=== PATIENT | female | born 1945 | race Caucasian/White ===

== ENCOUNTER 2017-11-10 09:32 | Emergency (ER) | payer MEDICARE, MEDICAID ==
[~2017-11-10] VITALS: Ht 160 cm; Wt 58.0 kg
[2017-11-10 10:32] LABS: BASOPHILS # (AUTO) 0.1 X10'3 (0-0.2); BASOPHILS % (AUTO) 0.7 % (0-1); EOSINOPHILS # (AUTO) 0.1 X10'3 (0-0.9); EOSINOPHILS % (AUTO) 1.4 % (0-6); HEMATOCRIT 45.5 % (35.0-45.0); HEMOGLOBIN 15.3 g/dl (12.0-16.0); LYMPHOCYTES # (AUTO) 0.9 X10'3 (1.1-4.8); LYMPHOCYTES % (AUTO) 10.9 % (21-51); MEAN CORPUSCULAR HEMOGLOBIN 29.4 PG (27.0-31.0); MEAN CORPUSCULAR HGB CONC 33.6 % (33.0-36.5); MEAN CORPUSCULAR VOLUME 87.4 FL (78-98); MEAN PLATELET VOLUME 8.5 FL (7.4-10.4); MONOCYTES # (AUTO) 0.6 X10'3 (0-0.9); MONOCYTES % (AUTO) 6.6 % (2-12); NEUTROPHILS # (AUTO) 6.9 X10'3 (1.8-7.7); NEUTROPHILS % (AUTO) 80.4 % (42-75); PLATELET COUNT 206 X10'3 (140-440); WHITE BLOOD COUNT 8.6 X10'3 (4.5-11.0)
[2017-11-10] MEDS ORDERED: methylPREDNISolone sod succ 125mg/2ml vial IM ONE (10:40)
[2017-11-10 10:53] LABS: ALANINE AMINOTRANSFERASE 23 U/L (12-78); ALBUMIN 3.2 G/DL (3.4-5.0); ALBUMIN/GLOBULIN RATIO 0.8 (1.1-1.5); ALKALINE PHOSPHATASE 124 IU/L (46-116); ANION GAP 10 (8-16); ASPARTATE AMINO TRANSFERASE 19 U/L (10-37); BILIRUBIN,TOTAL 0.5 MG/DL (0.1-1.0); BLOOD UREA NITROGEN 18 MG/DL (7-18); C-REACTIVE PROTEIN 2.43 MG/DL (0.0-0.5); CALCIUM 9.9 MG/DL (8.5-10.1); CHLORIDE 105 MMOL/L (99-107); GLUCOSE 99 MG/DL (70-104); POTASSIUM 3.7 MMOL/L (3.5-5.1); SODIUM 143 MMOL/L (135-145); TOTAL PROTEIN 7.3 G/DL (6.4-8.2); eGFR 54 ML/MIN
[2017-11-10] MEDS ORDERED: mag hydrox/Alum hydrox/simeth 30ml oral suspension PO ONE (10:55)
[2017-11-10 13:01] VITALS: BP 118/68
== END 2017-11-10 13:02 | disposition home or self-care (01) ==
LOC: ER 09:33
DX: M25.511 Pain in right shoulder (principal); R70.0 Elevated erythrocyte sedimentation rate; R79.82 Elevated C-reactive protein (CRP); M19.90 Unspecified osteoarthritis, unspecified site
CPT/HCPCS: 36415; 73030; 73060; 80053; 85025; 85651; 86140; 96372; 99285; J2930

== ENCOUNTER 2018-10-07 00:25 | Emergency (ER) | payer MEDICARE, MEDICAID ==
[~2018-10-07] VITALS: Ht 160 cm; Wt 58.6 kg
[2018-10-07 01:12] LABS: ALANINE AMINOTRANSFERASE 10 U/L (12-78); ALBUMIN 2.8 G/DL (3.4-5.0); ALBUMIN/GLOBULIN RATIO 0.9 (1.1-1.5); ALKALINE PHOSPHATASE 94 IU/L (46-116); ANION GAP 9 (8-16); ASPARTATE AMINO TRANSFERASE 0 U/L (10-37); BILIRUBIN,TOTAL 0.2 MG/DL (0.1-1.0); BLOOD UREA NITROGEN 29 MG/DL (7-18); BUN/CREATININE RATIO 18.5 (6.6-38.0); CALCIUM 8.6 MG/DL (8.5-10.1); CHLORIDE 104 MMOL/L (99-107); CREATININE 1.57 MG/DL (0.40-0.90); GLUCOSE 127 MG/DL (70-104); SODIUM 139 MMOL/L (135-145); TOTAL CARBON DIOXIDE 25.8 MMOL/L (24-32); eGFR 32 ML/MIN
[2018-10-07 01:14] LABS: INR 0.9 INR; PARTIAL THROMBOPLASTIN TIME 24 SECONDS (22-32); PROTHROMBIN TIME 9.6 SECONDS (9.0-12.0)
[2018-10-07 01:17] LABS: AMYLASE 87 U/L (25-115); LIPASE 306 U/L (73-393); MAGNESIUM 1.9 MG/DL (1.5-2.4)
[2018-10-07 01:25] LABS: BASOPHILS # (AUTO) 0.1 X10'3 (0-0.2); BASOPHILS % (AUTO) 0.5 % (0-1); EOSINOPHILS # (AUTO) 0.1 X10'3 (0-0.9); EOSINOPHILS % (AUTO) 0.7 % (0-6); HEMATOCRIT 47.1 % (35.0-45.0); HEMOGLOBIN 15.1 g/dl (12.0-16.0); LYMPHOCYTES # (AUTO) 1.7 X10'3 (1.1-4.8); LYMPHOCYTES % (AUTO) 16.1 % (21-51); MEAN CORPUSCULAR HEMOGLOBIN 28.1 PG (27.0-31.0); MEAN CORPUSCULAR HGB CONC 32.2 % (33.0-36.5); MEAN CORPUSCULAR VOLUME 87.4 FL (78-98); MONOCYTES # (AUTO) 0.6 X10'3 (0-0.9); MONOCYTES % (AUTO) 5.1 % (2-12); NEUTROPHILS # (AUTO) 8.3 X10'3 (1.8-7.7); NEUTROPHILS % (AUTO) 77.6 % (42-75); PLATELET COUNT 162 X10'3 (140-440); RED BLOOD COUNT 5.39 X10'6 (4.20-5.60); RED CELL DISTRIBUTION WIDTH 16.4 % (11.5-14.5); WHITE BLOOD COUNT 10.8 X10'3 (4.5-11.0)
[2018-10-07 02:32] VITALS: BP 132/75
== END 2018-10-07 02:35 | disposition home or self-care (01) ==
LOC: ER 00:25
DX: R00.2 Palpitations (principal); E86.0 Dehydration; Z95.0 Presence of cardiac pacemaker
CPT/HCPCS: 36415; 71045; 80053; 82150; 83690; 83735; 84484; 85025; 85610; 85730; 93005; 99284

== ENCOUNTER 2018-10-12 19:34 | Emergency (ER) | payer MEDICARE, MEDICAID ==
[~2018-10-12] VITALS: Ht 160 cm; Wt 57.2 kg
--- NOTE | 2018-10-12 20:10 | NUR ---
Patient is A&O x3, WORTHY and is appropriate. She was brought in by EMS with complaints of HTN, her BP is WNL now. I will continue to monitor.
--- NOTE | 2018-10-12 20:25 | NUR ---
Patient resting comfortably on gurney, no complaints.
[2018-10-12 20:49] LABS: BASOPHILS # (AUTO) 0.1 X10'3 (0-0.2); BASOPHILS % (AUTO) 0.6 % (0-1); EOSINOPHILS % (AUTO) 0.1 % (0-6); HEMATOCRIT 47.5 % (35.0-45.0); HEMOGLOBIN 15.4 g/dl (12.0-16.0); LYMPHOCYTES # (AUTO) 0.7 X10'3 (1.1-4.8); LYMPHOCYTES % (AUTO) 6.9 % (21-51); MEAN CORPUSCULAR HGB CONC 32.3 % (33.0-36.5); MEAN CORPUSCULAR VOLUME 86.6 FL (78-98); MEAN PLATELET VOLUME 8.5 FL (7.4-10.4); MONOCYTES # (AUTO) 0.1 X10'3 (0-0.9); MONOCYTES % (AUTO) 1.4 % (2-12); NEUTROPHILS # (AUTO) 9.4 X10'3 (1.8-7.7); PLATELET COUNT 188 X10'3 (140-440); RED BLOOD COUNT 5.48 X10'6 (4.20-5.60); WHITE BLOOD COUNT 10.3 X10'3 (4.5-11.0)
[2018-10-12 20:56] LABS: ALANINE AMINOTRANSFERASE 26 U/L (12-78); ALBUMIN/GLOBULIN RATIO 0.9 (1.1-1.5); ALKALINE PHOSPHATASE 87 IU/L (46-116); ANION GAP 11 (8-16); ASPARTATE AMINO TRANSFERASE 12 U/L (10-37); BILIRUBIN,TOTAL 0.2 MG/DL (0.1-1.0); BLOOD UREA NITROGEN 25 MG/DL (7-18); CALCIUM 8.5 MG/DL (8.5-10.1); CHLORIDE 102 MMOL/L (99-107); GLUCOSE 155 MG/DL (70-104); POTASSIUM 4.2 MMOL/L (3.5-5.1); SODIUM 138 MMOL/L (135-145); TOTAL CARBON DIOXIDE 25.3 MMOL/L (24-32); TOTAL PROTEIN 6.2 G/DL (6.4-8.2); eGFR 54 ML/MIN
[2018-10-12] MEDS ORDERED: LORazepam 1 MG tablet PO ONE (21:10)
[2018-10-12 21:24] VITALS: BP 114/76
== END 2018-10-12 21:27 | disposition home or self-care (01) ==
LOC: ER 19:34
DX: I10 Essential (primary) hypertension (principal); F41.9 Anxiety disorder, unspecified; M19.90 Unspecified osteoarthritis, unspecified site; Z95.0 Presence of cardiac pacemaker; Z91.041 Radiographic dye allergy status
CPT/HCPCS: 36415; 71045; 80053; 84484; 85025; 93005; 99284

== ENCOUNTER 2018-11-01 09:15 | Inpatient (IN) | payer MEDICARE, MEDICAID | END 2018-11-02 13:20 | disposition home or self-care (01) | LOC: ER 09:15 → PCU 3S 12:00 → MED 3N 19:05 ==

== ENCOUNTER 2019-06-11 14:44 | Emergency (ER) | payer MEDICARE, MEDICAID ==
[~2019-06-11] VITALS: Ht 160 cm; Wt 65.9 kg
[~2019-06-11 14:44] MED LIST: OMEP20CA11 PO; PRED10TA23 PO
[2019-06-11 14:50] VITALS: BP 131/76
[2019-06-11] MEDS ORDERED: AZIT250T PO (15:28)
== END 2019-06-11 15:43 | disposition home or self-care (01) ==
LOC: ER 14:45
DX: J06.9 Acute upper respiratory infection, unspecified (principal); L53.9 Erythematous condition, unspecified; J44.9 Chronic obstructive pulmonary disease, unspecified; M19.90 Unspecified osteoarthritis, unspecified site; Z95.0 Presence of cardiac pacemaker; Z79.899 Other long term (current) drug therapy; Z91.041 Radiographic dye allergy status
CPT/HCPCS: 99283

== ENCOUNTER 2019-08-27 11:46 | Emergency (ER) | payer MEDICARE, MEDICAID ==
[~2019-08-27] VITALS: Ht 160 cm; Wt 66.5 kg
[~2019-08-27 11:46] MED LIST changes: +AZIT250T PO
[2019-08-27 13:11] LABS: BASOPHILS % (AUTO) 0.7 % (0-1); EOSINOPHILS % (AUTO) 0.5 % (0-6); HEMOGLOBIN 15.6 g/dl (12.0-16.0); LYMPHOCYTES # (AUTO) 1.2 X10'3 (1.1-4.8); LYMPHOCYTES % (AUTO) 18.8 % (21-51); MEAN CORPUSCULAR HEMOGLOBIN 29.9 PG (27.0-31.0); MEAN CORPUSCULAR HGB CONC 33.3 g/dL (33.0-36.5); MEAN CORPUSCULAR VOLUME 89.7 FL (78-98); MEAN PLATELET VOLUME 8.8 FL (7.4-10.4); MONOCYTES # (AUTO) 0.6 X10'3 (0-0.9); MONOCYTES % (AUTO) 8.5 % (2-12); NEUTROPHILS # (AUTO) 4.7 X10'3 (1.8-7.7); NEUTROPHILS % (AUTO) 71.5 % (42-75); PLATELET COUNT 191 X10'3 (140-440); RED BLOOD COUNT 5.24 X10'6 (4.20-5.60); RED CELL DISTRIBUTION WIDTH 14.1 % (11.5-14.5); WHITE BLOOD COUNT 6.6 X10'3 (4.5-11.0)
[2019-08-27 13:34] LABS: ALANINE AMINOTRANSFERASE 10 U/L (12-78); ALBUMIN 3.2 G/DL (3.4-5.0); ALBUMIN/GLOBULIN RATIO 0.8 (1.1-1.5); ALKALINE PHOSPHATASE 92 IU/L (46-116); ANION GAP 6 (8-16); ASPARTATE AMINO TRANSFERASE 14 U/L (10-37); BILIRUBIN,TOTAL 0.3 MG/DL (0.1-1.0); BLOOD UREA NITROGEN 20 MG/DL (7-18); BUN/CREATININE RATIO 17.2 (6.6-38.0); C-REACTIVE PROTEIN 1.84 MG/DL (0.0-0.5); CALCIUM 9.1 MG/DL (8.5-10.1); CHLORIDE 104 MMOL/L (99-107); CREATININE 1.16 MG/DL (0.40-0.90); GLUCOSE 96 MG/DL (70-104); POTASSIUM 3.8 MMOL/L (3.5-5.1); SODIUM 139 MMOL/L (135-145); TOTAL PROTEIN 7.2 G/DL (6.4-8.2); eGFR 46 ML/MIN
[2019-08-27] MEDS ORDERED: ORPH100T2 PO (15:34)
[2019-08-27 15:38] VITALS: BP 140/74
== END 2019-08-27 15:39 | disposition home or self-care (01) ==
LOC: ER 11:47
DX: R51 Headache (principal); J44.9 Chronic obstructive pulmonary disease, unspecified; M19.90 Unspecified osteoarthritis, unspecified site; M81.0 Age-related osteoporosis without current pathological fracture; F17.200 Nicotine dependence, unspecified, uncomplicated; Z95.0 Presence of cardiac pacemaker; Z91.041 Radiographic dye allergy status; Z79.899 Other long term (current) drug therapy
CPT/HCPCS: 36415; 70486; 80053; 85025; 85651; 86140; 99284

== ENCOUNTER 2020-03-14 11:26 | Emergency (ER) | payer MEDICARE, MEDICAID ==
[~2020-03-14] VITALS: Ht 160 cm; Wt 60.9 kg
[~2020-03-14 11:26] MED LIST changes: -OMEP20CA11 PO; +OMEP20CA15 PO; +ORPH100T2 PO
[2020-03-14] MEDS ORDERED: aspirin 81mg tab.chew PO ONE (12:05)
[2020-03-14] MEDS ORDERED: atenolol 50mg tablet PO ONE (12:05)
[2020-03-14] MEDS ORDERED: ondansetron 4mg rapidly disintigrating tab PO ONE (12:05)
[2020-03-14] MEDS ORDERED: nitroGLYCERIN 0.4mg SUBLingual tab SL PRN (12:05)
[2020-03-14 12:09] LABS: BASOPHILS # (AUTO) 0.1 X10'3 (0-0.2); BASOPHILS % (AUTO) 0.9 % (0-1); EOSINOPHILS % (AUTO) 0.6 % (0-6); HEMATOCRIT 45.2 % (35.0-45.0); HEMOGLOBIN 14.8 g/dl (12.0-16.0); LYMPHOCYTES % (AUTO) 17.7 % (21-51); MEAN CORPUSCULAR HEMOGLOBIN 28.7 PG (27.0-31.0); MEAN CORPUSCULAR HGB CONC 32.7 g/dL (33.0-36.5); MEAN CORPUSCULAR VOLUME 87.8 FL (78-98); MEAN PLATELET VOLUME 9.2 FL (7.4-10.4); MONOCYTES # (AUTO) 0.4 X10'3 (0-0.9); MONOCYTES % (AUTO) 6.9 % (2-12); NEUTROPHILS # (AUTO) 4.1 X10'3 (1.8-7.7); NEUTROPHILS % (AUTO) 73.9 % (42-75); PLATELET COUNT 157 X10'3 (140-440); RED BLOOD COUNT 5.15 X10'6 (4.20-5.60); RED CELL DISTRIBUTION WIDTH 14.4 % (11.5-14.5); WHITE BLOOD COUNT 5.6 X10'3 (4.5-11.0)
[2020-03-14 12:23] LABS: ALANINE AMINOTRANSFERASE 12 U/L (12-78); ALBUMIN 3.4 G/DL (3.4-5.0); ALKALINE PHOSPHATASE 136 IU/L (46-116); ANION GAP 6 (8-16); ASPARTATE AMINO TRANSFERASE 17 U/L (10-37); BILIRUBIN,TOTAL 0.3 MG/DL (0.1-1.0); BLOOD UREA NITROGEN 15 MG/DL (7-18); BUN/CREATININE RATIO 11.8 (6.6-38.0); CALCIUM 9.5 MG/DL (8.5-10.1); CHLORIDE 108 MMOL/L (99-107); CREATININE 1.27 MG/DL (0.40-0.90); GLUCOSE 109 MG/DL (70-104); POTASSIUM 4.2 MMOL/L (3.5-5.1); SODIUM 143 MMOL/L (135-145); TOTAL CARBON DIOXIDE 28.8 MMOL/L (24-32); TOTAL PROTEIN 6.9 G/DL (6.4-8.2); eGFR 41 ML/MIN
[2020-03-14 12:31] LABS: MAGNESIUM 1.9 MG/DL (1.5-2.4)
--- NOTE | 2020-03-14 12:36 | NUR ---
Explained to patient that MD ordered medication, patient refused the zofran and the tenormin.
[2020-03-14 13:06] VITALS: BP 137/64
== END 2020-03-14 13:08 | disposition home or self-care (01) ==
LOC: ER 11:26
DX: R07.89 Other chest pain (principal); J44.9 Chronic obstructive pulmonary disease, unspecified; M19.90 Unspecified osteoarthritis, unspecified site; M81.0 Age-related osteoporosis without current pathological fracture; F41.9 Anxiety disorder, unspecified; F17.200 Nicotine dependence, unspecified, uncomplicated; Z95.0 Presence of cardiac pacemaker; Z86.79 Personal history of other diseases of the circulatory system
CPT/HCPCS: 36415; 71045; 80053; 83735; 83880; 84484; 85025; 93005; 99285

== ENCOUNTER 2020-11-28 21:17 | Emergency (ER) | payer MEDICAID, MEDICARE ==
[~2020-11-28] VITALS: Ht 160 cm; Wt 53.6 kg
[2020-11-28 21:20] VITALS: BP 129/83
[2020-11-28 22:05] LABS: CLARITY,URINE CLEAR (Clear); COLOR,URINE YELLOW (Yellow); GLUCOSE, URINE NEGATIVE (Neg); KETONES,URINE NEGATIVE (Neg); LEUKOCYTE ESTERASE ,URINE MODERATE (Neg); NITRITES, URINE NEGATIVE (Neg); OCCULT BLOOD,URINE LARGE (Neg); PH,URINE 6.5 (4.8-8.0); PROTEIN,URINE 30 mg/dl (Neg); UA COLLECTION TYPE CLN CATCH MIDSTREAM; UROBILINOGEN,URINE 0.2 E.U/dL (0.2-1.0)
[2020-11-28] MEDS ORDERED: phenazopyridine 100mg tablet PO ONE (22:25)
[2020-11-28] MEDS ORDERED: cephalexin 250mg capsule PO ONE (22:25)
[2020-11-28] MEDS ORDERED: ketorolac tromethamine 15mg/ml inj. IM ONE (22:25)
[2020-11-28 22:33] LABS: BACTERIA,URINE 2+ /HPF (Neg); RBC,URINE 20-50 /HPF (0-2); SQUAMOUS EPITHELIAL CELL,UR FEW /LPF (FEW); WBC,URINE 20-30 /HPF (0-4)
[2020-11-28] MEDS ORDERED: CEPH500C5 PO (22:33)
[2020-11-28 22:35] LABS: WBC CLUMPS,URINE MODERATE /HPF (NEGATIVE)
== END 2020-11-28 23:12 | disposition home or self-care (01) ==
LOC: ER 21:18
DX: N39.0 Urinary tract infection, site not specified (principal); R31.9 Hematuria, unspecified; R30.0 Dysuria; R10.30 Lower abdominal pain, unspecified; J44.9 Chronic obstructive pulmonary disease, unspecified; M19.90 Unspecified osteoarthritis, unspecified site; F41.9 Anxiety disorder, unspecified; F17.200 Nicotine dependence, unspecified, uncomplicated; Z87.442 Personal history of urinary calculi; Z95.0 Presence of cardiac pacemaker; Z79.2 Long term (current) use of antibiotics; Z79.899 Other long term (current) drug therapy
CPT/HCPCS: 81001; 87077; 87088; 87186; 99283

== ENCOUNTER 2024-08-20 13:39 | Emergency (ER) | payer MEDICARE, MEDICAID ==
[~2024-08-20] VITALS: Ht 160 cm; Wt 64.0 kg
[~2024-08-20 13:39] MED LIST changes: -ORPH100T2 PO; +ORPH100T4 PO
[2024-08-20 13:44] VITALS: TEMP 98.2
[2024-08-20 14:12] LABS: BASOPHILS % (AUTO) 0.7 % (0-1); EOSINOPHILS # (AUTO) 0.1 X10'3 (0-0.9); EOSINOPHILS % (AUTO) 1.3 % (0-6); HEMATOCRIT 45.2 % (35.0-45.0); HEMOGLOBIN 14.8 g/dl (12.0-16.0); LYMPHOCYTES # (AUTO) 1.8 X10'3 (1.1-4.8); LYMPHOCYTES % (AUTO) 26.7 % (21-51); MEAN CORPUSCULAR HGB CONC 32.7 g/dL (33.0-36.5); MEAN CORPUSCULAR VOLUME 85.9 FL (78-98); MEAN PLATELET VOLUME 8.6 FL (7.4-10.4); MONOCYTES # (AUTO) 0.6 X10'3 (0-0.9); MONOCYTES % (AUTO) 9.4 % (2-12); NEUTROPHILS # (AUTO) 4.2 X10'3 (1.8-7.7); NEUTROPHILS % (AUTO) 61.9 % (42-75); PLATELET COUNT 243 X10'3 (140-440); RED BLOOD COUNT 5.26 X10'6 (4.20-5.60); RED CELL DISTRIBUTION WIDTH 14.7 % (11.5-14.5); WHITE BLOOD COUNT 6.8 X10'3 (4.5-11.0)
[2024-08-20 14:25] LABS: ALANINE AMINOTRANSFERASE 13 U/L (12-78); ALBUMIN 3.1 G/DL (3.4-5.0); ALBUMIN/GLOBULIN RATIO 0.8 (1.1-1.5); ALKALINE PHOSPHATASE 116 IU/L (46-116); ANION GAP 6 (8-16); ASPARTATE AMINO TRANSFERASE 15 U/L (10-37); BILIRUBIN,TOTAL 0.5 MG/DL (0.1-1.0); BLOOD UREA NITROGEN 16 MG/DL (7-18); CHLORIDE 102 MMOL/L (99-107); CREATININE 1.07 MG/DL (0.40-0.90); GLUCOSE 124 MG/DL (70-104); POTASSIUM 3.6 MMOL/L (3.5-5.1); SODIUM 134 MMOL/L (135-145); TOTAL CARBON DIOXIDE 26.2 MMOL/L (24-32); TOTAL PROTEIN 7.1 G/DL (6.4-8.2); eCRCL 35 ML/MIN; eGFR 49 ML/MIN
[2024-08-20 14:31] LABS: PRO BRAIN NATRIURETIC PEPTIDE 270 PG/ML (0-450)
[2024-08-20 16:00] VITALS: BP 124/62; PULSE 52; RESP 16; O2SAT 95
== END 2024-08-20 16:04 | disposition home or self-care (01) ==
LOC: ER 13:40
DX: R00.2 Palpitations (principal); I48.91 Unspecified atrial fibrillation; F17.200 Nicotine dependence, unspecified, uncomplicated; J44.9 Chronic obstructive pulmonary disease, unspecified; M19.90 Unspecified osteoarthritis, unspecified site; F41.9 Anxiety disorder, unspecified; Z87.442 Personal history of urinary calculi; Z95.0 Presence of cardiac pacemaker; Z79.52 Long term (current) use of systemic steroids; Z79.899 Other long term (current) drug therapy
CPT/HCPCS: 36415; 71045; 80053; 83880; 84484; 85025; 93005; 99285

== ENCOUNTER 2024-09-25 05:59 | Day surgery (SDC) | payer MEDICARE, MEDICAID ==
[2024-09-17 16:31] LABS: BASOPHILS % (AUTO) 0.6 % (0-1); EOSINOPHILS # (AUTO) 0.1 X10'3 (0-0.9); EOSINOPHILS % (AUTO) 1.2 % (0-6); LYMPHOCYTES # (AUTO) 1.6 X10'3 (1.1-4.8); MEAN CORPUSCULAR HEMOGLOBIN 28.5 PG (27.0-31.0); MEAN CORPUSCULAR HGB CONC 33.3 g/dL (33.0-36.5); MEAN CORPUSCULAR VOLUME 85.7 FL (78-98); MEAN PLATELET VOLUME 8.2 FL (7.4-10.4); MONOCYTES # (AUTO) 0.6 X10'3 (0-0.9); NEUTROPHILS # (AUTO) 3.8 X10'3 (1.8-7.7); NEUTROPHILS % (AUTO) 62.2 % (42-75); PRE OP HEMATOCRIT 44.4 % (35.0-45.0); PRE OP HEMOGLOBIN 14.8 g/dL (12.0-16.0); PRE OP PLATELET COUNT 234 X10'3 (140-440); PRE OP WHITE BLOOD COUNT 6.2 10'3 (4.8-10.8); RED BLOOD COUNT 5.18 X10'6 (4.20-5.60); RED CELL DISTRIBUTION WIDTH 14.7 % (11.5-14.5)
[2024-09-17 16:50] LABS: ALBUMIN 2.9 G/DL (3.4-5.0); ALBUMIN/GLOBULIN RATIO 0.6 (1.1-1.5); ALKALINE PHOSPHATASE 114 IU/L (46-116); BLOOD UREA NITROGEN 19 MG/DL (7-18); BUN/CREATININE RATIO 19.4 (10.0-20.0); CALCIUM 9.5 MG/DL (8.5-10.1); CHLORIDE 105 MMOL/L (99-107); CREATININE 0.98 MG/DL (0.40-0.90); PRE OP ANION GAP 8 (8-16); PRE OP AST 14 U/L (10-37); PRE OP BILIRUB, TOTAL 0.3 MG/DL (0.0-1.0); PRE OP GLUCOSE 75 MG/DL (70-104); PRE OP POTASSIUM 3.9 MMOL/L (3.4-5.1); PRE OP SODIUM 143 MMOL/L (135-145); TOTAL CARBON DIOXIDE 29.6 MMOL/L (24-32); TOTAL PROTEIN 7.4 G/DL (6.4-8.2); eGFR 55 ML/MIN
[2024-09-17 16:55] LABS: PRE OP ALT 3 U/L (30-65)
[~2024-09-25] VITALS: Ht 160 cm; Wt 57.3 kg
[2024-09-25] VITALS (11 sets, daily range): BP systolic 121–153; BP diastolic 57–79; PULSE 50–63; RESP 12–19; TEMP 97.1; O2SAT 95–98
[~2024-09-25 05:59] MED LIST changes: -AZIT250T PO; +NO HOME MEDS; -OMEP20CA15 PO; -ORPH100T4 PO; -PRED10TA23 PO; +famotidine 20mg tablet PO ONE; +ringers solution, lacted 1,000 ML IV SCH
[2024-09-25] MEDS: famotidine 20mg tablet PO ONE (07:08)
[2024-09-25] MEDS: ringers solution, lacted 1,000 ML IV SCH (07:15)
[2024-09-25] MEDS ORDERED: sevoflurane 250ml liquid IH ONE (08:09)
[2024-09-25] MEDS ORDERED: midazolam 1 mg/ML 2ml injection ONE (08:16)
[2024-09-25] MEDS ORDERED: fentaNYL/PF 50MCG/1 ML 2ML syringe ONE (08:16)
[2024-09-25] MEDS ORDERED: dexamethasone sod phosphate 4mg/ml inj. ONE (08:26)
[2024-09-25] MEDS ORDERED: propofol inj 20 ML IV ONE (08:26)
[2024-09-25] MEDS ORDERED: ondansetron/PF 4mg/2ml inj ONE (08:26)
[2024-09-25] MEDS ORDERED: LIDOcaine 2% (20mg/ml) 5ml vial ONE (08:26)
[2024-09-25] MEDS ORDERED: rocuronium 10mg/ml inj IV ONE (08:26)
[2024-09-25] MEDS ORDERED: neostigmine methylsulfate 1 MG/ML 10ml vial ONE (08:26)
[2024-09-25] MEDS ORDERED: hydrALAZINE 20mg/ml inj. IV PRN (08:45)
[2024-09-25] MEDS ORDERED: labetalol 20mg/4ml (5mg/ml) syringe IV PRN (08:45)
[2024-09-25] MEDS ORDERED: ringers solution, lacted 1,000 ML IV SCH (08:45)
[2024-09-25] MEDS ORDERED: morphine 2 MG/ML inj. syringe IV PRN (08:45)
[2024-09-25] MEDS ORDERED: fentaNYL/PF 50MCG/1 ML 2ML syringe IV PRN ×2 (08:45)
[2024-09-25] MEDS ORDERED: morphine 4 MG/ML inj SYRINge IV PRN (08:45)
[2024-09-25] MEDS ORDERED: ondansetron/PF 4mg/2ml inj IV PRN (08:45)
[2024-09-25] MEDS ORDERED: sugammadex 200mg/2ml injection IV ONE (08:58)
== END 2024-09-25 10:24 | disposition home or self-care (01) ==
LOC: PAS 05:59
PROVIDERS: ATTEND Internal Medicine Critical Care Medicine
DX: R22.2 Localized swelling, mass and lump, trunk (principal); E78.5 Hyperlipidemia, unspecified; J43.9 Emphysema, unspecified; I48.91 Unspecified atrial fibrillation; I73.9 Peripheral vascular disease, unspecified; F41.9 Anxiety disorder, unspecified; M81.0 Age-related osteoporosis without current pathological fracture; M06.9 Rheumatoid arthritis, unspecified; I25.2 Old myocardial infarction; Z79.899 Other long term (current) drug therapy; Z90.49 Acquired absence of other specified parts of digestive tract; Z95.0 Presence of cardiac pacemaker; Z98.890 Other specified postprocedural states; Z82.49 Family history of ischemic heart disease and other diseases of the circulatory system; Z80.1 Family history of malignant neoplasm of trachea, bronchus and lung
CPT/HCPCS: 31624; 31627; 31628; 31629; 31653; 36415; 71250; 80053; 82948; 85025; 87015; 87070; 87116; 87206; 93005; 94760; A4618; J1100; J2003; J2250; J2310; J2405; J2704; J3010; J3490; J7120; Z7506; Z7508; Z7512; Z7610; 31622; 31625; 31626; 31654; 88173; 88305; J2710

== ENCOUNTER 2024-09-27 11:11 | Emergency (ER) | payer MEDICARE, MEDICAID ==
[~2024-09-27] VITALS: Ht 160 cm; Wt 60.0 kg
[~2024-09-27 11:11] MED LIST changes: -famotidine 20mg tablet PO ONE; -ringers solution, lacted 1,000 ML IV SCH
[2024-09-27 11:15] VITALS: BP 135/78; PULSE 61; RESP 14; TEMP 97.7; O2SAT 98
[2024-09-27] MEDS: mag hydrox/Alum hydrox/simeth 30ml oral suspension PO ONE (13:29)
[2024-09-27] MEDS: dexamethasone sod phosphate 10mg/ml inj PO STA (13:29)
[2024-09-27] MEDS: diphenhydrAMINE 25 MG/10 ML UD oral solution PO ONE (13:30)
[2024-09-27] MEDS: LIDOcaine 2% Viscous 15ml cup MM PRN (13:30)
[2024-09-27] MEDS: ondansetron 4mg rapidly disintigrating tab PO ONE (13:35)
== END 2024-09-27 14:07 | disposition home or self-care (01) ==
LOC: ER 11:11
DX: J02.9 Acute pharyngitis, unspecified (principal); J44.9 Chronic obstructive pulmonary disease, unspecified; M19.90 Unspecified osteoarthritis, unspecified site; F41.9 Anxiety disorder, unspecified; Z87.442 Personal history of urinary calculi; Z95.0 Presence of cardiac pacemaker
CPT/HCPCS: 99284; J1100; Q0163

== ENCOUNTER 2024-12-29 04:30 | Emergency (ER) | payer MEDICARE, MEDICAID ==
[~2024-12-29] VITALS: Ht 160 cm; Wt 61.4 kg
[2024-12-29 04:35] VITALS: TEMP 97.8
[2024-12-29 05:29] VITALS: BP 145/90; PULSE 62; RESP 16; O2SAT 98
== END 2024-12-29 06:04 | disposition home or self-care (01) ==
LOC: ER 04:31
DX: S60.212A Contusion of left wrist, initial encounter (principal); F41.9 Anxiety disorder, unspecified; J44.9 Chronic obstructive pulmonary disease, unspecified; M19.90 Unspecified osteoarthritis, unspecified site; Z87.442 Personal history of urinary calculi; Z95.0 Presence of cardiac pacemaker; W22.8XXA Striking against or struck by other objects, initial encounter; Y93.89 Activity, other specified; Y92.89 Other specified places as the place of occurrence of the external cause; Y99.8 Other external cause status
CPT/HCPCS: 73110; 99283

== ENCOUNTER 2025-07-14 18:48 | Emergency (ER) | payer MEDICARE, MEDICAID ==
[~2025-07-14] VITALS: Ht 157.5 cm; Wt 59.2 kg
[2025-07-14 18:55] VITALS: TEMP 97.6
--- NOTE | 2025-07-14 18:57 | ELECTROCARDIOGRAPH REPORT ---
[facility] Test Date: 2025-07-14 Test Time: 18:55:01 Pat Name: JULIO POLLOCK Department: [facility] Patient ID: [facility]-[id number] Room: Gender: F Under [employer] Operator: : 1945 Requested By: KEMAR DOE Order Number: [id number] Reading MD: Dr. Rodolfo Barone Measurements Intervals [place] Rate: 64 P: 74 AL: 206 QRS: 89 QRSD: 92 T: 44 QT: 404 QTc: 417 Interpretive Statements Sinus rhythm Consider left atrial enlargement Borderline right axis deviation Low voltage, precordial leads Nonspecific T abnrm, anterolateral leads Baseline wander in lead(s) II,aVF Electronically Signed On 07-15-2025 21:39:[address] Rodolfo Barone Please click the below link to view image of tracing.
[2025-07-14 19:21] LABS: MEAN PLATELET VOLUME 9.0 FL (7.4-10.4); RED CELL DISTRIBUTION WIDTH 14.5 % (11.5-14.5)
[2025-07-14 19:36] LABS: CREATININE 1.01 MG/DL (0.40-0.90); PRO BRAIN NATRIURETIC PEPTIDE 287 PG/ML (0-450); TOTAL CARBON DIOXIDE 28.8 MMOL/L (24-32); eCRCL 35 ML/MIN; eGFR 53 ML/MIN
--- NOTE | 2025-07-14 19:44 | RADIOLOGY REPORT ---
EXAM: DI CHEST,SINGLE VIEW TECHNIQUE: Single frontal chest radiograph CLINICAL HISTORY: CP COMPARISON: CT CT CHEST ION on DOS: 09/17/24, DI CHEST,SINGLE VIEW on DOS: 08/20/24, CHEST,SINGLE VIEW on DOS: 03/14/20 FINDINGS/IMPRESSION: 2.5 cm opacity within the right lower lung, this may be further evaluated with CT chest as clinically indicated. Unremarkable cardiomediastinal silhouette. Left-sided dual-chamber pacemaker with 1 lead appearing slightly low and projecting over the lower thorax, clinical correlati on is suggested. No pleural effusion or pneumothorax. No acute osseous abnormality.
--- NOTE | 2025-07-14 20:12 | Physician Documentation ---
History of Present Illness ~ Chief Complaint: Irregular Heartbeat Stated Complaint: IRREGULAR HR Time Seen by MD: 19:33 Primary Medical Doctor: REYNOLD Mode of Arrival: POV HPI Patient presents to the emergency room for evaluation of palpitations that has been going on all day. She has history of atrial fibrillation. She also has pacemaker placed. Denies any chest pain. Sees Dr. Bird. Medication Reconciliation Allergies: Uncoded Allergies: CONTRAST DYE (Allergy, Mild, 10/07/18) Miscellaneous Medications Home Med List (No Home Medications), (Reported) Past Medical History Past Medical History: No Pertinent History, *CARDIOVASCULAR*, COPD, Inflammatory Bowel Dz, *RENAL/*, Kidney Stones, *MUSCULOSKELETAL*, Arthritis, Osteoporosis, *DERMATOLOGY*, Anxiety Past Surgical History: pacemaker Alcohol Use: Rarely Drug Use: none Lives with: Spouse Lives In: Home Occupation: retired Review of Systems ROS All review of systems negative except as per HPI Physical Exam Vital Signs: Temperature: 97.6, Source: Oral, Heart Rate: 56, Respiratory Rate: 14, BP: 161/76, Pulse Oximetry: 97, Weight: 59.200 Oxygen Flow Rate: 0 Physical Exam General: Patient is awake, alert, oriented x4 in no acute distress and well appearing.~ Head: Normocephalic and atraumatic. Eyes: Conjunctival normal. EOMI. PERRL. ENT: Mucous membranes moist. Neck: Supple, trachea is midline. Chest: Clear to auscultation bilaterally without rales, rhonchi, or wheezes. There is no accessory muscle use or retractions. Cardiac: RRR without murmurs, gallops, or rubs. Abd: Soft, nondistended, nontender, with normoactive bowel sounds. No guarding, rebound, or rigidity. Progress Results/Orders Results/Orders Orders - BRENNON CASTILLO MD Chest,Single View (07/14/25 19:25) Monitor (07/14/25 18:50) Saline Lock (07/14/25 18:50) Oxygen (07/14/25 18:50) Hs Troponin I W Calculations (07/14/25 20:50) Hs Troponin I W Calculations (07/14/25 21:50) Completed Orders - BRENNON CASTILLO MD Chest,Single View (07/14/25 19:25) Cbc/Diff (07/14/25 18:50) BMP (07/14/25 18:50) PBNP (07/14/25 18:50) Electrocardiogram (07/14/25 18:50) Hs Troponin I W Calculations (07/14/25 18:50) Mag & Alum Hydrox/Simeth Susp (Maalox Or (07/14/25 20:25) Medications Received in ER Medications (Trade) Dose Ordered Sig/Elvi Route PRN Reason Start Time Stop Time Status Last Admin Dose Admin (Maalox oral suspension) 30 ml ONCE ONCE PO 07/14/25 20:25 07/14/25 20:26 DC 07/14/25 20:52 30 ML Vital Signs 07/14/25 07/14/25 07/14/25 07/14/25 18:55 19:11 19:13 20:54 Temp 97.6 Pulse 98 56 59 Resp 14 14 14 13 B/P (MAP) 166/81 161/76 (104) 158/72 (100) Pulse Ox 99 97 95 O2 Flow Rate 0 0 Laboratory Tests Test 07/14/25 18:54 White Blood Count 7.9 Red Blood Count 5.44 Hemoglobin 15.8 Hematocrit 46.6 H Mean Corpuscular Volume 85.7 Mean Corpuscular Hemoglobin 29.0 Mean Corpuscular Hemoglobin Concent 33.8 Red Cell Distribution Width 14.5 Platelet Count 209 Mean Platelet Volume 9.0 Neutrophils (%) (Auto) 67.9 Lymphocytes (%) (Auto) 23.4 Monocytes (%) (Auto) 6.7 Eosinophils (%) (Auto) 1.3 Basophils (%) (Auto) 0.7 Neutrophils # (Auto) 5.3 Lymphocytes # (Auto) 1.8 Monocytes # (Auto) 0.5 Eosinophils # (Auto) 0.1 Basophils # (Auto) 0.1 CBC Comment Sodium Level 141 Potassium Level 3.9 Chloride Level 106 Carbon Dioxide Level 28.8 Anion Gap 6 L Blood Urea Nitrogen 25 H Creatinine 1.01 H Estimated GFR/1.73 m2 53 BUN/Creatinine Ratio 24.8 H Glucose Level 145 H Calcium Level 9.0 Troponin I High Sensitivity 7 Pro-B-Type Natriuretic Peptide 287 Albumin 3.2 L Chemistry Comments EKG/XRAY/CT/US/VASC/MRI EKG : Additional Comment EKG interpreted by myself shows time of 1855, rate 64, sinus rhythm, borderline right axis deviation, no ST changes Chest X-Ray : Additional Comments Exam: CHEST,SINGLE VIEW EXAM: DI CHEST,SINGLE VIEW TECHNIQUE: Single frontal chest radiograph CLINICAL HISTORY: CP COMPARISON: CT CT CHEST ION on DOS: 09/17/24, DI CHEST,SINGLE VIEW on DOS: 08/20/24, CHEST,SINGLE VIEW on DOS: 03/14/20 FINDINGS/IMPRESSION: 2.5 cm opacity within the right lower lung, this may be further evaluated with CT chest as clinically indicated. Unremarkable cardiomediastinal silhouette. Left-sided dual-chamber pacemaker with 1 lead appearing slightly low and projecting over the lower thorax, clinical correlation is suggested. No pleural effusion or pneumothorax. No acute osseous abnormality. Medical Decision Making Findings Patient presents to the emergency room for evaluation of palpitations. Differentials include but are not limited to cardiac arrhythmia, esophageal spasm, muscle wall spasm, ACS therefore emergent labs ordered. Labs reassuring. Patient's symptoms are atypical and I do not know what her palpitations represents. Patient's pacemaker interrogated and is working reassuring. Departure Disposition: HOME / SELF CARE / HOMELESS Impression: Primary Impression: Palpitations Condition: Stable Discharge Instructions: Palpitations Referrals: NO PRIMARY CARE PROVIDER (PCP) Signature Scribe Signature: No scribe Attestation: The note accurately reflects work and decisions made by me.Brennon Castillo MD 07/14/25 20:12 BRENNON CASTILLO MD Jul 14, 2025 20:12
[2025-07-14] MEDS: mag hydrox/Alum hydrox/simeth 30ml oral suspension PO ONE (20:52)
[2025-07-14 21:25] VITALS: BP 158/72; PULSE 59; RESP 13; O2SAT 95
== END 2025-07-14 21:26 | disposition home or self-care (01) ==
LOC: ER 18:48
DX: R00.2 Palpitations (principal); J44.9 Chronic obstructive pulmonary disease, unspecified; M19.90 Unspecified osteoarthritis, unspecified site; F41.9 Anxiety disorder, unspecified; I48.91 Unspecified atrial fibrillation; Z87.442 Personal history of urinary calculi
CPT/HCPCS: 36415; 71045; 80048; 83880; 84484; 85025; 93005; 99285